=== PATIENT | male | born 1980 | race Caucasian/White ===

== ENCOUNTER 2024-02-23 10:04 | Emergency (ER) | payer OTHER | END 2024-02-23 13:04 | disposition home or self-care (01) | LOC: JP.ED 10:04 | DX: R55 Syncope and collapse (principal); E78.00 Pure hypercholesterolemia, unspecified; I25.10 Atherosclerotic heart disease of native coronary artery without angina pectoris; Z79.899 Other long term (current) drug therapy; Z79.84 Long term (current) use of oral hypoglycemic drugs; Z88.0 Allergy status to penicillin | CPT/HCPCS: 70450; 70486; 93005; 99284 ==